=== PATIENT | male | born 1990 | race American Indian/Alaskan Native ===

== ENCOUNTER 2019-08-05 19:18 | Emergency (ER) | payer MEDICAID ==
[~2019-08-05] VITALS: Ht 182.9 cm; Wt 77.1 kg
== END 2019-08-05 21:38 | disposition home or self-care (01) ==
LOC: ED 19:18
DX: J10.1 Influenza due to other identified influenza virus with other respiratory manifestations (principal); F17.200 Nicotine dependence, unspecified, uncomplicated
CPT/HCPCS: 87502; 99283

== ENCOUNTER 2019-12-02 16:14 | Emergency (ER) | payer MEDICAID ==
[~2019-12-02] VITALS: Ht 182.9 cm; Wt 79.4 kg
== END 2019-12-02 18:16 | disposition home or self-care (01) ==
LOC: ED 16:14
DX: R55 Syncope and collapse (principal)
CPT/HCPCS: 70450; 80053; 85025; 99285-25